=== PATIENT | female | born 1990 | race Caucasian/White ===

== ENCOUNTER 2019-12-22 04:56 | Emergency (ER) | payer SELFPAY ==
[~2019-12-22] VITALS: Ht 149.9 cm; Wt 60.0 kg
[2019-12-22 05:03] VITALS: Ht 149.9 cm; Wt 60.0 kg
[2019-12-22 06:14] LABS: CALCIUM 8.9 mg/dL (8.5-10.1); CARBON DIOXIDE 28.8 mmol/L (21-32); CHLORIDE SERUM 104 mmol/L (98-107); CREATININE SERUM 0.7 mg/dL (0.6-1.0); GFR1 > 60 mL/min; GLUCOSE SERUM 125 mg/dL (74-106); POTASSIUM SERUM 3.9 mmol/L (3.5-5.1); SODIUM SERUM 142 mmol/L (136-145)
[2019-12-22 06:19] LABS: ALBUMIN 4.6 g/dL (3.4-5.0); ALKALINE PHOSPHATASE 108 U/L (46-116); ALT/SGPT 22 U/L (14-59); AST/SGOT 18 U/L (15-37); BILIRUBIN TOTAL 0.5 mg/dL (0.20-1.00); LIPASE 62 IU/L (73-393); TOTAL PROTEIN, SERUM 8.1 g/dL (6.4-8.2)
[2019-12-22 06:24] LABS: AMYLASE 20 U/L (25-115)
[2019-12-22 06:33] LABS: BASOPHIL % 0.4 % (0-2); PLATELET COUNT 351 x10^3mcL (130-400); RED CELL DISTRIBUTION WIDTH 13.4 % (11.5-14.5)
[2019-12-22 07:58] VITALS: BP 124/73
== END 2019-12-22 07:58 | disposition home or self-care (01) ==
LOC: ED 04:56
PROVIDERS: Emergency Medicine
DX: K80.20 Calculus of gallbladder without cholecystitis without obstruction (principal)
CPT/HCPCS: J2270; J2405; J7030; Q0092; Q0162

== ENCOUNTER 2020-11-04 10:25 | Emergency (ER) | payer MEDICAID ==
[~2020-11-04] VITALS: Ht 149.9 cm; Wt 59.0 kg
[2020-11-04 10:35] VITALS: Ht 149.9 cm; Wt 59.0 kg
[2020-11-04 11:21] LABS: BASOPHIL % 0.3 % (0.2-1.3); PLATELET COUNT 304 x10^3mcL (179-408)
[2020-11-04 11:42] LABS: CALCIUM 9.3 mg/dL (8.5-10.1); CHLORIDE SERUM 103 mmol/L (98-107); CREATININE SERUM 0.7 mg/dL (0.6-1.0); GFR1 > 60 mL/min; GLUCOSE SERUM 125 mg/dL (74-106); POTASSIUM SERUM 3.8 mmol/L (3.5-5.1); SODIUM SERUM 140 mmol/L (136-145)
[2020-11-04 11:46] LABS: ALBUMIN 4.4 g/dL (3.4-5.0); ALKALINE PHOSPHATASE 77 U/L (46-116); ALT/SGPT 27 U/L (14-59); AST/SGOT 19 U/L (15-37); BILIRUBIN TOTAL 0.3 mg/dL (0.20-1.00); LIPASE 78 IU/L (73-393); TOTAL PROTEIN, SERUM 7.4 g/dL (6.4-8.2)
[2020-11-04 13:44] VITALS: BP 114/64
== END 2020-11-04 13:44 | disposition home or self-care (01) ==
LOC: ED 10:25
PROVIDERS: Emergency Medicine
DX: K80.20 Calculus of gallbladder without cholecystitis without obstruction (principal)
CPT/HCPCS: J1885; J2405; J7030